=== PATIENT | female | born 1995 | race Caucasian/White ===

== ENCOUNTER 2020-01-04 14:56 | Outpatient (CLI) | payer OTHER, SELFPAY ==
--- NOTE | 2020-01-04 15:08 | XR_ITS ---
WS: [id number] KUB, 01/04/2020 Clinical Data: R FLANK PAIN Comparison: None. Findings: No abnormal intraabdominal masses or calcifications are seen. There is no dilatated small bowel or ev idence of obstruction. No definite renal or ureteral calculi are seen. There is an intrauterine device in the region of the uterus. XR/XR abdomen 1V* [id number] Impression: Negative KUB.
== END 2020-01-04 14:57 | disposition home or self-care (01) ==
LOC: RAD 15:00
PROVIDERS: Visit Provider Nurse Practitioner Family
DX: R10.9 Unspecified abdominal pain (principal)
CPT/HCPCS: 74018